=== PATIENT | female | born 1985 | race African-American/Black ===

== ENCOUNTER → 2023-07-06 15:47 | Outpatient (REF) | payer OTHER, SELFPAY ==
[2023-07-06 14:49] LABS: % Basophils 0.8 % (0-2); % Monocytes 5.4 % (1.7-9.3); % Neutrophils 58.8 % (42.2-75.2); Absolute Eosinophils 0.2 10^3/uL (0-0.7); Absolute Lymphocytes 1.6 10^3/uL (1.2-3.4); Absolute Monocytes 0.3 10^3/uL (0.1-0.6); Absolute Neutrophils 2.9 10^3/uL (1.4-6.5); Hematocrit 31.4 % (37.0-47.0); Mean Corp Hgb Conc. 31.8 g/dL (33.0-37.0); Mean Corpuscular Hgb 22.5 pg (27.0-31.0); Mean Corpuscular Volume 70.7 fL (81.0-99.0); Red Blood Cell Count 4.44 10^6/uL (4.20-5.40); Red Cell Dist. Width 23.7 % (11.5-14.5)
[2023-07-06 14:52] LABS: Platelet Count 260 10^3/uL (130-400)
== END ==
LOC: OIDL 15:47
PROVIDERS: ATTENDING PHYSICIAN Internal Medicine Hematology & Oncology
DX: D50.9 Iron deficiency anemia, unspecified (principal)
CPT/HCPCS: 85025